=== PATIENT | male | born 1960 | race Caucasian/White ===

== ENCOUNTER 2018-12-25 05:33 | Day surgery (SDC) | payer BC, MEDICAID ==
[2018-12-25] MEDS ORDERED: PROPOFOL 10 MG/ML VIAL IV ONE (05:34)
[2018-12-25] MEDS ORDERED: MIDAZOLAM HCL 2MG/2ML VIAL IV ONE (05:34)
[2018-12-25] MEDS ORDERED: FENTANYL PF 100MCG/2ML VIAL IV ONE (05:34)
[2018-12-25] MEDS ORDERED: TRANEXAMIC ACID 1,000 MG/10 ML ML IV ONE (05:34)
[2018-12-25] MEDS ORDERED: LIDOCAINE 2% MDV (20MG/ML) 20ML VIAL IV ONE (05:34)
[2018-12-25] MEDS ORDERED: DEXAMETHASONE 4 MG/ML 1ML VIAL IVP ONE (05:34)
[2018-12-25] MEDS ORDERED: ROPIVACAINE HCL (NAROPIN) /PF 5MG/ML 20ML VIAL IV ONE (05:34)
[2018-12-25] MEDS ORDERED: METOCLOPRAMIDE 10 MG TABLET PO ONE (06:00)
[2018-12-25] MEDS ORDERED: MECLIZINE 25 MG TABLET PO ONE (06:00)
[2018-12-25] MEDS ORDERED: CELECOXIB 100 MG CAPSULE PO ONE (06:00)
[2018-12-25] MEDS ORDERED: CEFAZOLIN 2 Gram 2 GM/50 ML BAG IVPB ONE (06:00)
[2018-12-25] MEDS ORDERED: FAMOTIDINE 20MG TABLET PO ONE (06:00)
[2018-12-25] MEDS ORDERED: NALOXONE 0.4 MG/1 ML VIAL IVP PRN (09:30)
[2018-12-25] MEDS ORDERED: DIPHENHYDRAMINE HCL 25 MG CAPSULE PO PRN (09:30)
[2018-12-25] MEDS ORDERED: HYDROMORPHONE HCL 2 MG/ML VIAL IV PRN (09:30)
[2018-12-25] MEDS ORDERED: HYDROCODONE/APAP 5/325MG TABLET PO PRN (09:30)
[2018-12-25] MEDS ORDERED: TRAMADOL HCL 50 MG TABLET PO PRN ×2 (09:30)
[2018-12-25] MEDS ORDERED: ZOLPIDEM TARTRATE 5 MG TABLET PO PRN (09:30)
[2018-12-25] MEDS ORDERED: METOCLOPRAMIDE HCL 10 MG/2 ML VIAL IVP PRN (09:30)
[2018-12-25] MEDS ORDERED: MAGNESIUM HYDROXIDE 30 ML UDC PO PRN (09:30)
[2018-12-25] MEDS ORDERED: AL HYDROX/MAG HYDROX 30ML UD PO PRN (09:30)
[2018-12-25] MEDS ORDERED: ONDANSETRON HCL IV 4 MG/2 ML VIAL IVP PRN (09:30)
[2018-12-25] MEDS ORDERED: RINGERS SOLUTION,LACTATED 1,000 ML IV SCH (09:30)
[2018-12-25] MEDS ORDERED: OXYCODONE HCL/APAP 5MG/325MG TABLET PO PRN ×2 (09:30)
[2018-12-25] MEDS ORDERED: ACETAMINOPHEN 325 MG TAB PO PRN (09:30)
[2018-12-25] MEDS ORDERED: SENNOSIDES/DOCUSATE SODIUM UD CAPSULE PO PRN (09:30)
[2018-12-25] MEDS ORDERED: TRANEXAMIC ACID 1,000 MG in 0.9 % SODIUM CHLORIDE 100ML 100 ML IVPB ONE (11:00)
[2018-12-25] MEDS ORDERED: RINGERS SOLUTION,LACTATED 1,000 ML IV PRN (11:52)
[2018-12-25] MEDS: CEFAZOLIN 2 Gram 2 GM/50 ML BAG IVPB SCH ×2 (15:23→22:13)
--- NOTE | 2018-12-25 15:31 | Operative Note ---
DATE OF SURGERY: 12/25/2018 Surgeon: Tien Roberson DO PREOPERATIVE DIAGNOSIS: Primary osteoarthritis of the left knee. POSTOPERATIVE DIAGNOSIS: Primary osteoarthritis of the left knee. OPERATION: Left total knee arthroplasty. DESCRIPTION OF PROCEDURE: This 58-year-old male was taken to the operating room and placed in the supine position on the operating room table. Spinal anesthesia was induced. The left knee was elevated. It was prepped with Hibiclens and draped in the usual sterile fashion. It was exsanguinated and the tourniquet inflated to 300 mmHg. All scrub personnel wore personal isolation suits. An anterior longitudinal midline incision was made followed by a medial parapatellar arthrotomy incision. An intracondylar drill hole was made for the intramedullary alignment neha, and a 6-degree valgus 9 mm cut was made in the distal femur. The wafer of bone was removed. Sizing jig was affixed. A size 70 was seen to be the appropriate size in the anterior-posterior dimension but slightly narrow in the medication-lateral dimension but felt to be acceptable. The 4-in-1 cutting block was affixed and pinned in 3 degrees of external rotation. The appropriate cuts were made and the wafers of bone were removed. We then directed our attention to the proximal tibia, and an extramedullary alignment guide was used to cut the proximal tibia referencing a 10 mm cut off the lateral tibial plateau. Once the cutting block was in appropriate position, a 3-degree posterior slope cut was made and the wafer of bone was removed. Remnants of the menisci and osteophytes were removed from the posterior aspect of the joint. The tibia was sized to a size 83, and the stem punch was used. Because of the sclerosis of the bone on the medial tibial plateau, drill holes were made in the tibial plateau in the sclerotic area. Trial components were inserted and a 10 mm bearing was seen to be the appropriate size, which gave us stability throughout the entire range of motion. The patella was cut and restored to anatomic height with a 37 x 10 mm trial. The knee was again taken through full range of motion with excellent stability being identified. All trial components were then removed and the wound copiously irrigated with pulse lavage lactated Ringer's solution. All bony surfaces were dried. All components were cemented and excess cement removed after the insertion of each component. Initially, the tibial baseplate was cemented followed by the insertion of the bearing and the femoral component was subsequently cemented followed by the patella. Once the cement had hardened, the knee was again taken through range of motion with excellent stability of the knee being identified. A drain was placed through a separate stab incision, and the arthrotomy incision was closed with a #2 Vicryl. The subcutaneous tissue was closed with 0 Vicryl and the skin was stapled. Sterile dressings applied with a Polar Care. The patient was taken to the recovery room in satisfactory condition. GROSS PATHOLOGY: This patient demonstrated full-thickness medial compartment articular cartilage loss mostly noted in the posterior aspect of the medial femoral condyle and on the medial aspect of the medial tibial plateau. The lateral compartment demonstrated defects in the articular cartilage of the lateral tibial plateau but the lateral femoral condyle articular cartilage was intact. Grade 2 changes noted at the patella. Final components inserted were a [employer] size 70 cruciate retaining femur, a size 83 tibial baseplate, 10 mm anterior stabilized E1 bearing, and a 37 x 10 mm patella was used. CC: Stef MOORE
--- NOTE | 2018-12-25 15:47 | Rehab Evaluation ---
Patient Information - Patient Information Diagnosis: OA L knee, s/p TKA Ordered Treatment: PT Evaluate and Treat Status: Initial Evaluation Surgery: Yes (L TKA) Date of Surgery: 12/25/18 History: Detail (Pt describes progressive degeneration of L knee, worsening over time. He also underwent spinal synovial cyst excision in September 2018, as the L LE would give out on him and he fell frequently prior to spinal surgery.) Past Medical/Surgical Hx: PAST MEDICAL/SURGICAL HISTORY Past Surgical History SYNOVIAL CYST REMOVED FROM LOW BACK 09-21 [facility] BILATERAL KNEE SCOPES CARDIAC STENTS 2008 2 OF THEM KIDNEY STONES KNUCKLE REPLACEMENTS CARDIAC ABLATION 2011 PMH - Respiratory Hx Respiratory Disorders Yes Hx Bronchitis Yes Hx Sleep Apnea Yes Hx of CPAP Yes PMH - Cardiovascular Hx Cardiovascular Disorders Yes Hx Abnormal EKG Yes Hx Cardiac Catheterization Yes Hx Congestive Heart Failure Yes: IN PAST Hx Heart Attack Yes: 2014 NO INTERVENTION Hx Hypertension Yes: ON MEDS GOOD CONTROL Hx Irregular Heartbeat Yes: HX A FIB HAD ABLATION WITH SUCCESS Hx Coronary Artery Disease Yes Hx Coronary Stent Yes Exercise Tolerance Fair Comment: HYPERLIPIDEMIA PMH - Neuro Hx Neurological Disorders No PMH - GI Hx Gastrointestinal Disorders Yes Hx Gastroesophageal Reflux Yes: ON MEDS Hx Weight Loss/Weight Gain Yes: RECENT GAIN 20 LBS PMH - Hx Genitourinary Disorders No PMH - Endocrine Hx Endocrine Disorders Yes Hx Diabetes Yes: DX'D YRS AGO Hx of NIDDM Yes: ON LOW DOSE METFORMIN Comment: DOESNT CHECK BLOOD SUGARS A1C 6.2 PMH - Musculoskeletal Hx Musculoskeletal Disorders Yes Hx Arthritis Yes: HIPS AND KNEES PMH - Psych Hx Psychiatric Problems No PMH - Hematology/Oncology Hx Hematology/Oncology Yes Disorders Hx Cancer Yes: SKIN BCC AND SQUAMOUS CELL Premorbid Status: Detail (Pt was ambulating without assistive device, but had weakness and instability in the L LE associated with knee degeneration and spinal synovial cyst.) Social History: Detail (Pt lives w/ in a two story home with 3 steps to enter, with B handrails. He will not need to go upstairs immediately after surgery, will be staying on main floor for a few days. He has tub/shower combo , elevated toilet, no grab bars. He has his own walker in the room, and he has a shower bench at home.) Precautions: [place], Fall - Time With Patient Total Time Spent With Patient (Min): 40 Treatment Procedures: Detail (PT Evaluation, initial mobility) Subjective Information - Subjective Information Per Patient (Pt denies pain in the knee at rest. States he tried doing the pre- op exercises and had sharp pain in the thigh above the knee, relieved w/pain meds.) Objective Data - Pain Pain Present: Yes Pain Intensity: 1 (L thigh at rest) Pain Scale Used: Numeric (1 - 10) - Mental Status Patient Orientation: Oriented x3 - Visual Perception Appears within normal limits for therapeutic activities - ROM Not within normal limits (Limited in L knee flexion and extension due to surgical procedure, bulky dressing. Otherwise within normal limits at B hips and ankles, and R knee.) - Strength/Tone Not within normal limits (Grossly 3-/5 in L hip flexion, abduction, adduction and L knee flexion/extension. 4/5 in L hip extension and ankle dorsiflexion. 5/ 5 in major muscle groups of R LE.) - Coordination Appears within normal limits for therapeutic activities - Bed Mobility Needs Assist (Required contact guard assist for managing L LE across bed and off of bed to sitting, and minimal assistance to place L LE on leg pad of recliner.) - Transfers Needs Assist (CGA for sit/stand transition from bed to front wheeled walker and from standing to recliner.) - Balance Balance Sitting: Good Balance Standing: Good (With front wheeled walker) - Sensation Intact - Gait Detail (Ambulated from bedside out to hallway, to end of hallway and back to room. Stood at toilet to urinate, then ambulated to bedside recliner with front wheeled walker (total about 90 feet) with CGA and assist for IV pole.) Therapy Assessment - Therapy Assessment Detail (Pt exhibits mobility impairments consistent with his post-surgical condition. He is a good candidate for inpatient physical therapy.) Patient Education - Patient Education Teaching Topic: Disease Process, Equipment Use, Exercise/Activity Response: Verbalize Understanding Teaching Method: Discussion Teaching Recipient: Patient, Family Barriers To Learning: None Problem List - Problem List Physical Therapy Problem List: Detail (1. Requires contact guard/minimal assistance for bed mobility. 2. Requires contact guard assist for transfers. 3. Difficulty walking.) Goals - Goals Physical Therapy Goals: 1. Pt will be independent with bed mobility. 2. Pt will be independent with sit/stand transfers. 3. Pt will safely ambulate with front-wheeled walker over household distances with supervision. 4. Pt will safely ascend/descend three steps with supervision/contact guard assistance, with appropriate assistive device. Prognosis - Prognosis Good Plan - Plan Physical Therapy Plan: Pt will be seen 1-2 times tomorrow for mobility, transfer , and gait training for safe return to home. Anticipate discharge tomorrow afternoon.
[2018-12-25] MEDS: PANTOPRAZOLE SODIUM 40 MG TABLET PO SCH (16:40)
[2018-12-25] MEDS: HYDROCODONE/APAP 5/325MG TABLET PO PRN (20:29)
[2018-12-25] MEDS: ASPIRIN 325 MG TAB ENTERIC-COATED PO SCH (21:31)
[2018-12-25] MEDS: CHANTIX 1 MG PO SCH (21:35)
[2018-12-25] MEDS ORDERED: LOSARTAN POTASSIUM 25 MG TABLET PO SCH (22:00)
[2018-12-25] MEDS ORDERED: ATORVASTATIN 20 MG TABLET PO SCH (22:00)
[2018-12-25] MEDS ORDERED: METFORMIN 500 MG TABLET PO SCH (22:00)
[2018-12-26] MEDS: HYDROCODONE/APAP 5/325MG TABLET PO PRN ×3 (02:53→13:28)
[2018-12-26] MEDS: PANTOPRAZOLE SODIUM 40 MG TABLET PO SCH ×2 (06:18→16:40)
[2018-12-26] MEDS: CEFAZOLIN 2 Gram 2 GM/50 ML BAG IVPB SCH (06:18)
[2018-12-26 06:49] LABS: HEMATOCRIT 38.9 % (42.0-52.0); HEMOGLOBIN 13.3 gm/dl (14.0-18.0); MEAN CELL VOLUME 89.4 fl (81-97); MEAN CORPUSCULAR HGB CONC 34.2 g/dl (32-36); MEAN PLATELET VOLUME 10.3 fl (7.4-10.4); PLATELET COUNT 250 K/uL (130-400); RED BLOOD COUNT 4.35 M/uL (4.40-5.70); RED CELL DISTRIBUTION WIDTH 13.3 % (11.5-14.5); WHITE BLOOD COUNT W/O DIFF 10.5 K/uL (4.2-12.2)
[2018-12-26 06:57] LABS: MEAN CORPUSCULAR HEMOGLOBIN 30.5 pg (27-33)
[2018-12-26] MEDS: ASPIRIN 325 MG TAB ENTERIC-COATED PO SCH (09:15)
[2018-12-26] MEDS: CHANTIX 1 MG PO SCH (09:17)
[2018-12-26] MEDS ORDERED: CELECOXIB 100 MG CAPSULE PO SCH (10:00)
[2018-12-26] MEDS ORDERED: ATENOLOL 25 MG TABLET PO SCH (10:00)
--- NOTE | 2018-12-26 11:45 | Rehab Evaluation ---
Patient Information - Patient Information Diagnosis: OA L knee, s/p TKA Ordered Treatment: OT Evaluate and Treat Status: Initial Evaluation Surgery: Yes (L TKA) Date of Surgery: 12/25/18 History: Detail (Pt describes progressive degeneration of L knee, worsening over time. He also underwent spinal synovial cyst excision in September 2018, as the L LE would give out on him and he fell frequently prior to spinal surgery.) Past Medical/Surgical Hx: PAST MEDICAL/SURGICAL HISTORY Past Surgical History SYNOVIAL CYST REMOVED FROM LOW BACK 09-21 [facility] BILATERAL KNEE SCOPES CARDIAC STENTS 2008 2 OF THEM KIDNEY STONES KNUCKLE REPLACEMENTS CARDIAC ABLATION 2011 PMH - Respiratory Hx Respiratory Disorders Yes Hx Bronchitis Yes Hx Sleep Apnea Yes Hx of CPAP Yes PMH - Cardiovascular Hx Cardiovascular Disorders Yes Hx Abnormal EKG Yes Hx Cardiac Catheterization Yes Hx Congestive Heart Failure Yes: IN PAST Hx Heart Attack Yes: 2014 NO INTERVENTION Hx Hypertension Yes: ON MEDS GOOD CONTROL Hx Irregular Heartbeat Yes: HX A FIB HAD ABLATION WITH SUCCESS Hx Coronary Artery Disease Yes Hx Coronary Stent Yes Exercise Tolerance Fair Comment: HYPERLIPIDEMIA PMH - Neuro Hx Neurological Disorders No PMH - GI Hx Gastrointestinal Disorders Yes Hx Gastroesophageal Reflux Yes: ON MEDS Hx Weight Loss/Weight Gain Yes: RECENT GAIN 20 LBS PMH - Hx Genitourinary Disorders No PMH - Endocrine Hx Endocrine Disorders Yes Hx Diabetes Yes: DX'D YRS AGO Hx of NIDDM Yes: ON LOW DOSE METFORMIN Comment: DOESNT CHECK BLOOD SUGARS A1C 6.2 PMH - Musculoskeletal Hx Musculoskeletal Disorders Yes Hx Arthritis Yes: HIPS AND KNEES PMH - Psych Hx Psychiatric Problems No PMH - Hematology/Oncology Hx Hematology/Oncology Yes Disorders Hx Cancer Yes: SKIN BCC AND SQUAMOUS CELL Premorbid Status: Detail (Pt was ambulating without assistive device, but had weakness and instability in the L LE associated with knee degeneration and spinal synovial cyst.) Social History: Detail (Pt lives w/ in a two story home with 2 steps to enter, no railings. His bedroom is on the second floor. He will not need to go upstairs immediately after surgery, will be staying on main floor for a few days. He has tub/shower combo, elevated toilet, no grab bars. He has his own walker in the room, and he has a shower bench at home. He and spouse share home mgmt, meal prep and laundry tasks.) Precautions: [place], Fall - Time With Patient Total Time Spent With Patient (Min): 40 Treatment Procedures: Detail (OT eval low complexity) Subjective Information - Subjective Information Per Patient Objective Data - Pain Pain Present: Yes (01/11) - Mental Status Patient Orientation: Oriented x3 - Visual Perception Appears within normal limits for therapeutic activities - ROM Within normal limits (Luis Enrique UE AROM WNL) - Strength/Tone Within normal limits (Luis Enrique UE strength WNL) - Coordination Appears within normal limits for therapeutic activities - Bed Mobility Independent (Ind with supine to sit and sit to supine.) - Transfers Independent (Ind with sit to stand from EOB) - Balance Balance Sitting: Good Balance Standing: Good - Sensation Intact - ADL's/IADL's Detail (Pt educated and able to demonstrate learning of modified LE dressing techniques including doffing slipper socks and briefs and donning underwear, pants, socks and tennis shoes. Pt had increased pain with donning socks, reviewed use of stool for LE dressing and he demonstrated learning. Reviewed kitchen and bathroom safety and modifications, pt verbalized understanding.) Therapy Assessment - Therapy Assessment Detail (Pt is Ind with modified LE dressing techniques.) Problem List - Problem List Physical Therapy Problem List: Detail (1. Requires contact guard/minimal assistance for bed mobility. 2. Requires contact guard assist for transfers. 3. Difficulty walking.) Occupational Therapy Problem List: Detail (No current IP OT problems identified. ) Goals - Goals Physical Therapy Goals: 1. Pt will be independent with bed mobility. 2. Pt will be independent with sit/stand transfers. 3. Pt will safely ambulate with front-wheeled walker over household distances with supervision. 4. Pt will safely ascend/descend three steps with supervision/contact guard assistance, with appropriate assistive device. Occupational Therapy Goals: No current IP OT goals identified. Prognosis - Prognosis Good Plan - Plan Physical Therapy Plan: Pt will be seen 1-2 times tomorrow for mobility, transfer , and gait training for safe return to home. Anticipate discharge tomorrow afternoon. Occupational Therapy Plan: No further IP OT recommended. Thank you for this referral.
--- NOTE | 2018-12-26 11:59 | Physical Therapy Tx Note ---
Physical Therapy Tx Note - Treatment Note Tolerated: Good Total Time Spent With Patient: 25 Physical Therapy Tx Note: Detail (The patient was up in chair when PT arrived. The patient was independent with sit to and from stand transfer. The patient ambulated independently with front wheeled walker WBAT on the L LE a distance of 80 feet. The patient ambulated on stairs with use of folded walker and railing using proper technique. The patient was independent with supine to and from sit and scooting up in bed using R LE to lift L LE .The patient completed the following TKA exercises: heel slides, gluteal sets, quad sets, hamstring sets, ankle pumps and SLR with a strap. The patient had difficulty isolating quad and was unable to complete a SLR without assist. The patient has met all inpatient PT goals and is discharged from inpatient PT. The patient is to receive outpatient PT.) Physical Therapy Problem List: Detail (1. Requires contact guard/minimal assistance for bed mobility. 2. Requires contact guard assist for transfers. 3. Difficulty walking.) Physical Therapy Goals: 1. Pt will be independent with bed mobility. (Goal Met) . 2. Pt will be independent with sit/stand transfers. (Goal Met). 3. Pt will safely ambulate with front-wheeled walker over household distances with supervision. (Goal Met). 4. Pt will safely ascend/descend three steps with supervision/contact guard assistance, with appropriate assistive device. (Goal Met) Physical Therapy Plan: The patient has met all inpatient PT goals and is discharged from inpatient PT.
--- NOTE | 2018-12-29 08:30 | Discharge Summary ---
DATE OF ADMISSION: 12/25/2018 DATE OF DISCHARGE: 12/26/2018 ADMITTING DIAGNOSIS: Osteoarthritis of the left knee. DISCHARGE DIAGNOSIS: Osteoarthritis of the left knee. OPERATIVE PROCEDURE: Left total knee arthroplasty. DESCRIPTION: This 58-year-old male was admitted to the hospital for elective total knee arthroplasty and tolerated the operative procedure well. He progressed satisfactorily with physical therapy and was discharged from PT. He will be allowed to be discharged home today. He will wear his COBY hose during the day and remove them at night. He will take aspirin 325 mg daily. He was given a prescription for [place] 7.5/325 mg, #40, 1 every 4 hours as necessary for pain. Routine wound care instructions were given and he will follow up in my office in 2 weeks. He will have outpatient physical therapy. Should he have any problems prior to being seen, he was instructed to call my office. ELLIS
== END 2018-12-26 17:00 | disposition home or self-care (01) ==
LOC: SUR 05:33 → MEDSURG 09:37 → SUR 12-26 17:00
PROVIDERS: ATTEND Orthopaedic Surgery
DX: M17.12 Unilateral primary osteoarthritis, left knee (principal); I10 Essential (primary) hypertension; E78.00 Pure hypercholesterolemia, unspecified; E11.9 Type 2 diabetes mellitus without complications; G47.33 Obstructive sleep apnea (adult) (pediatric); I25.10 Atherosclerotic heart disease of native coronary artery without angina pectoris; I48.91 Unspecified atrial fibrillation; Z95.5 Presence of coronary angioplasty implant and graft
CPT/HCPCS: 27447; 01402; 64447; 85025; 36416; 82948; 90686; J3010; J1170; J0690 ×2; J3490; J2795; 76942

== ENCOUNTER 2020-01-02 10:09 | Emergency (ER) | payer BC, MEDICAID ==
[2020-01-02] MEDS ORDERED: HYDROMORPHONE HCL 1 MG/ML SYRINGE IVP ONE (10:30)
[2020-01-02] MEDS ORDERED: ONDANSETRON HCL IV 4 MG/2 ML VIAL IVP ONE ×2 (10:30→11:42)
--- NOTE | 2020-01-02 10:35 | Emergency Department Record ---
History of Present Illness - General Chief Complaint: Fall Injury Stated Complaint: FALL/PAIN R SIDE Time Seen by Provider: 01/02/20 10:23 Source: Patient Mode of Arrival: Ambulatory Limitations: No limitations - History of Present Illness Initial Comments: The patient is here due to tripping and falling at home about 20 minutes prior to presenting to the ER. He was walking and tripped and fell to the ground somehow injuring his R lower chest and upper abdomen. Since he has had very significant pain in the area. There has been no vomiting, SOB, MONSE, or L sided abdominal pain. MD Complaint: Fall Onset/Timin -: Minutes(s) Fall From: Standing - Related Data Previous Rx's Medication Instructions Recorded Hydrocodone/Acetaminophen [Alt[facility] 1 each PO .EVERY 4-6 HRS PRN #15 01/02/20 5-325 Tablet] tablet Allergies Allergy/AdvReac Type Severity Reaction Status Date / Time No Known Drug Intolerances Allergy Unknown PT UNSURE Verified 01/02/20 10:21 OF REACTION Review of Systems Constitutional: Denies: Chills, Fever Eyes: Denies: Eye discharge ENT: Denies: Congestion Respiratory: Denies: Cough, Dyspnea Past Medical History - SOCIAL HISTORY Smoking Status: Former smoker Drug Use: None - RESPIRATORY Hx Respiratory Disorders: Yes Hx Bronchitis: Yes Hx Sleep Apnea: Yes Hx of CPAP: Yes - CARDIOVASCULAR Hx Cardio Disorders: Yes Hx Abnormal EKG: Yes Hx Cardiac Cath: Yes Hx CHF: Yes (IN PAST) Hx Heart Attack: Yes (2014 NO INTERVENTION) Hx Hypertension: Yes (ON MEDS GOOD CONTROL) Hx Irregular Heartbeat: Yes (HX A FIB HAD ABLATION WITH SUCCESS) Hx Coronary Artery Disease: Yes Hx Coronary Stent: Yes Comment:: HYPERLIPIDEMIA - NEURO Hx Neuro Disorders: No - GI Hx GI Disorders: Yes Hx Reflux: Yes (ON MEDS) Hx Wt Loss/Wt Gain: Yes (RECENT GAIN 20 LBS) - Hx Genitourinary Disorders: No - ENDOCRINE Hx Endocrine Disorders: Yes Hx Diabetes: Yes (DX'D YRS AGO) Comment:: DOESNT CHECK BLOOD SUGARS A1C 6.2 - MUSCULOSKELETAL Hx Musculoskeletal Disorders: Yes Hx Arthritis: Yes (HIPS AND KNEES) - PSYCH Hx Psych Problems: No - HEMATOLOGY/ONCOLOGY Hx Hematology/Oncology Disorders: Yes Hx Cancer: Yes (SKIN BCC AND SQUAMOUS CELL) Family Medical History Hx Heart Disease: Father, Children, Brother/Sister, Grandparents Hx Kidney Disease: Mother Physical Exam - General General Appearance: Alert, Oriented x3, Cooperative, No acute distress - Head Head exam: Atraumatic, Normocephalic - Eye Eye exam: Normal appearance, PERRL - ENT Throat exam: Normal inspection. negative: Tonsillar erythema, Tonsillar exudate - Neck Neck exam: Normal inspection, Full ROM. negative: Tenderness - Respiratory Respiratory exam: Normal lung sounds bilaterally, Chest wall tenderness (R lower lateral chest wall.). negative: Respiratory distress - Cardiovascular Cardiovascular Exam: Regular rate, Normal rhythm, Normal heart sounds - GI/Abdominal GI/Abdominal exam: Tenderness (There is RUQ tenderness.). negative: Soft - Extremities Extremities exam: Normal inspection, Full ROM, Normal capillary refill. negative: Tenderness - Back Image of Body Front/Back: 1 - Area of pain and reproducible tenderness. - Neurological Neurological exam: Alert, Normal gait. negative: Abnormal gait, Motor sensory deficit Course - Reevaluation(s) Reevaluation #1: The patient is doing a lot better at this time. He has no pain unless he is moving or bending. There is no SOB, MONSE, or AP presently. 01/02/20 13:06 Reevaluation #2: The patient is doing significantly better at this time. He is able to get up and walk and only has pain to the R lower rib area when he bends or moves. I did discuss the normal lab work, xrays and UA. I do believe the patient must have a crack in his rib cartilage due to the pain being so reproducible at that site. We will provide him Altus for home and he is to return for any worsening issues. 01/02/20 13:47 Reevaluation #3: I also did discuss the thyroid nodule seen on the CT and the need for F/U with his PCP due to that issue. We did provide the patient with the CT scan report. 01/02/20 14:01 Medical Decision Making - Data Complexity MDM Data: Labs Ordered and/or Reviewed, X-Ray Ordered and/or Reviewed, EKG Ordered and/or Reviewed - Lab Data Result diagrams: 01/02/20 10:20 01/02/20 10:20 - EKG Data -: EKG Interpreted by Me EKG: No Acute Changes, Normal EKG - Radiology Data Radiology results: Report reviewed (Chest/abd/pelvis CT: Neg for any traumatic pathology.) Disposition Disposition: Discharge Clinical Impression: Fracture, rib Qualifiers: Encounter type: initial encounter Rib fracture type: single rib Fracture type: closed Laterality: right Qualified Code(s): S22.31XA - Fracture of one rib, right side, initial encounter for closed fracture Disposition: Home, Self-Care Condition: (2) Stable Instructions: Rib Fracture (ED) Additional Instructions: Please take Motrin or Advil for pain and please use the Altus if needed. Please see your doctor for recheck in 2 days and return to the ER for any worsening or new issues. Prescriptions: Hydrocodone/Acetaminophen [[facility] 5-325 Tablet] 1 each PO .EVERY 4-6 HRS PRN #15 tablet PRN Reason: Pain Forms: Patient Portal Access Time of Disposition: 13:52 Quality - Quality Measures Quality Measures: N/A - Blood Pressure Screening View Details: Yes Does Patient Have Any of the Following: Active Dx of HTN Blood Pressure Classification: Hypertensive Reading Systolic Measurement: 184 Diastolic Measurement: 96 Screening for High Blood Pressure: Patient Exclusion, Hx of HTN [[id number]]
[2020-01-02 10:49] LABS: ABSOLUTE NEUTROPHIL COUNT 3.77; BASO % 0.3 % (0-6); EOS % 1.9 % (0-6); GRAN % 60.2 % (47-80); HEMATOCRIT 47.3 % (42.0-52.0); HEMOGLOBIN 15.4 gm/dl (14.0-18.0); LYMPH % 29.8 % (16-45); MEAN CELL VOLUME 87.9 fl (81-97); MEAN CORPUSCULAR HEMOGLOBIN 28.6 pg (27-33); MEAN CORPUSCULAR HGB CONC 32.6 g/dl (32-36); MONO % 7.8 % (0-9); PLATELET COUNT 335 K/uL (130-400); RED BLOOD COUNT 5.38 M/uL (4.40-5.70); RED CELL DISTRIBUTION WIDTH 14.7 % (11.5-14.5); WHITE BLOOD COUNT W/O DIFF 6.3 K/uL (4.2-12.2)
[2020-01-02 10:59] LABS: BLOOD UREA NITROGEN 12 mg/dL (8-23); CREATININE 0.8 mg/dL (0.7-1.2); EST GLOMERULAR FILTRATION RATE > 60 mL/min
[2020-01-02 11:00] LABS: TOTAL PROTEIN 7.9 g/dL (6.6-8.7)
[2020-01-02 11:01] LABS: PROTHROMBIN TIME (PATIENT) 9.9 SECONDS (9.5-12.1)
[2020-01-02 11:02] LABS: GLUCOSE,RANDOM 239 mg/dL (74-109)
[2020-01-02 11:04] LABS: ALB/GLOB RATIO 1.3 (1.1-1.8); ALBUMIN 4.5 g/dL (4.0-5.0); ALT/SGPT 57 U/L (<41); AST/SGOT 40 U/L (10.0-50.0)
[2020-01-02 11:05] LABS: ALKALINE PHOSPHATASE 80 U/L (40-129)
[2020-01-02] MEDS ORDERED: 0.9 % SODIUM CHLORIDE 1,000 ML BAG IV ONE (11:08)
[2020-01-02] MEDS ORDERED: KETOROLAC 30 MG/ML VIAL IVP ONE (11:29)
--- NOTE | 2020-01-02 12:07 | CT SCAN REPORT ---
EXAMINATION: CT Chest, Abdomen and Pelvis with Contrast EXAM DATE: 01/02/2020 11:49 AM TECHNIQUE: Standard protocol CT images of the chest, abdomen and pelvis were performed with intraveno us contrast. Coronal and sagittal images were reconstructed. IV Contrast: The amount and type of contrast are recorded in the medical record. INDICATION: R lower chest, upper abdomen pains S/P fall. COMPARISON: CT abdomen and pelvis dated 07/27/2009 ENCOUNTER: Not applicable CT CHEST FINDINGS: Base of Neck & Axillae: No adenopathy. Roughly 11 mm nodule noted at the inferior margin of the right lobe of the thyroid gland, nonspecific. Mediastinum & Chastity: There is no mediastinal or hilar adenopathy. Cardiovascular: Normal heart size without pericardial effusion. Coronary artery atherosclerotic de la garza es are noted. The thoracic aorta and main pulmonary artery have a normal caliber. Tracheobronchial Structures: There is no bronchial wall thickening or bronchiectasis. Lung Parenchyma: The lungs are clear. Pleural Space: There are no pleural effusions. There is no pneumothorax. Chest Wall & Musculoskeletal: No conclusive fracture, particularly relative to the right ribs. Subtle injury relative to the nonossified costal cartilage can be difficult to exclude. No concerning osteo lytic or osteoblastic bone lesion. CT ABDOMEN AND PELVIS FINDINGS: Hepatobiliary: Mild diffuse diminished attenuation throughout the otherwise normal-appearing liver rdz ggests a component of fatty infiltration. No findings for hepatic injury. The gallbladder is absent. There is no biliary dilatation. Pancreas: The pancreas is normal. Spleen: The spleen is not enlarged. Adrenals: The adrenal glands are normal. Kidneys, Ureters, & Bladder: Both kidneys have a normal size and there is no hydronephrosis. Both ur eters have a normal caliber and the urinary bladder is unremarkable. Gastrointestinal: The stomach and small bowel are normal with no obstruction or inflammation. The diamond endix is normal. Large bowel is of normal caliber. Scattered colonic diverticula are noted. No findi ngs for colonic wall thickening or surrounding inflammatory change. Reproductive Organs: Unremarkable Lymphatic System: There is no adenopathy within the abdomen or pelvis. Vasculature: Normal caliber abdominal aorta. Mild aortoiliac atherosclerotic changes noted without f indings for stenosis. Peritoneum: No free fluid, free air, or inflammation Abdominal Wall & Musculoskeletal: No discernible fracture. No concerning lytic or blastic lesion. IMPRESSION: 1. No acute traumatic abnormality of the chest, abdomen, or pelvis. 2. Hepatic steatosis. 3. Colonic diverticulosis without findings for diverticulitis. 4. Coronary and aortoiliac atherosclerotic changes. 5. Roughly 11 mm nodule of the inferior aspect of the right thyroid lobe. Nonemergent follow-up thyr oid ultrasound is recommended for additional characterization. NOTE: There is a follow-up recommendation in this report. Dictated by: Cruz Cali MD on 01/02/2020 11:51 AM. .
[2020-01-02] MEDS ORDERED: ACETAMINOPHEN 1,000 MG/100 ML BTL IVPB ONE (12:34)
[2020-01-02 13:31] LABS: URINE APPEARANCE CLEAR; URINE BILIRUBIN NEGATIVE (NEGATIVE); URINE BLOOD NEGATIVE (NEGATIVE); URINE COLOR YELLOW; URINE KETONE NEGATIVE (NEGATIVE); URINE LEUKOCYTE ESTERASE NEGATIVE (NEGATIVE); URINE NITRITE NEGATIVE (NEGATIVE); URINE PROTEIN NEGATIVE (NEGATIVE); URINE UROBILINOGEN 0.2 E.U./dL (0.20 - 1.00)
== END 2020-01-02 14:05 | disposition home or self-care (01) ==
LOC: ER 10:09
DX: S22.31XA Fracture of one rib, right side, initial encounter for closed fracture (principal); R10.11 Right upper quadrant pain; I50.9 Heart failure, unspecified; I10 Essential (primary) hypertension; I25.2 Old myocardial infarction; E11.9 Type 2 diabetes mellitus without complications; Z79.84 Long term (current) use of oral hypoglycemic drugs; Z87.891 Personal history of nicotine dependence; W01.10XA Fall on same level from slipping, tripping and stumbling with subsequent striking against unspecified object, initial encounter; Y92.009 Unspecified place in unspecified non-institutional (private) residence as the place of occurrence of the external cause
CPT/HCPCS: 71260; 74177; 80053; 81003; 85025; 85610; 85730; 93005; 93010; 96365; 96375; 96376; 99284; J1170; J1885; J2405; J7030